=== PATIENT | female | born 1985 | race Caucasian/White ===

== ENCOUNTER 2017-11-03 20:46 | Emergency (ER) | payer OTHER ==
[~2017-11-03] VITALS: Ht 157.5 cm; Wt 72.6 kg
[2017-11-03 20:49] VITALS: BP 127/82
--- NOTE | 2017-11-03 21:25 | NUR ---
PT TO CT.
[2017-11-03] MEDS ORDERED: KETOROLAC TROMETHAMINE INJ 60 MG/2 ML VIAL IM ONE (21:30)
[2017-11-03] MEDS ORDERED: LORAZEPAM INJ 2 MG/ML VIAL IM ONE (21:30)
[2017-11-03] MEDS ORDERED: LORAZEPAM INJ 2 MG/ML VIAL ONE (21:32)
[2017-11-03] MEDS ORDERED: KETOROLAC TROMETHAMINE INJ 30 MG/ML VIAL ONE (21:32)
[2017-11-03] MEDS ORDERED: HYDROCODONE/APAP 5/325MG 1 EACH TABLET ONE (22:49)
[2017-11-03] MEDS ORDERED: HYDROCODONE/APAP 5/325MG 1 EACH TABLET PO ONE (23:00)
== END 2017-11-03 22:51 | disposition home or self-care (01) ==
LOC: ER 20:50
DX: S16.1XXA Strain of muscle, fascia and tendon at neck level, initial encounter (principal); S93.501A Unspecified sprain of right great toe, initial encounter; S20.219A Contusion of unspecified front wall of thorax, initial encounter; S80.11XA Contusion of right lower leg, initial encounter; V49.59XA Passenger injured in collision with other motor vehicles in traffic accident, initial encounter; Y93.89 Activity, other specified; Y92.410 Unspecified street and highway as the place of occurrence of the external cause; Y99.8 Other external cause status
CPT/HCPCS: 71045; 72125; 73590; 73620; 96372 ×2; 99284; A4606; J1885; J2060; J7030; Z7610